=== PATIENT | female | born 1985 | race Caucasian/White ===

== ENCOUNTER 2018-12-06 10:12 | Inpatient (IN) | payer OTHER ==
[~2018-12-06] VITALS: Ht 157.5 cm; Wt 91.8 kg
[~2018-12-06 10:12] MED LIST: IBUP-1222 PO; OXYC-302 PO; PNV91TAB3 PO
[2018-12-06 10:21] VITALS: BP 116/72
[2018-12-06] MEDS ORDERED: OXYTOCIN 30U/ 0.9% NaCL 500ML 500 ML IV ONE (11:04)
[2018-12-06] MEDS ORDERED: D5%-LACTATED RINGERS 1,000 ML IV SCH (11:04)
[2018-12-06] MEDS: LACTATED RINGERS 1,000 ML IV SCH ×2 (11:09→13:11)
[2018-12-06] MEDS ORDERED: MISOPROSTOL 200 MCG TABLET ONE (11:26)
[2018-12-06] MEDS ORDERED: LIDOCAINE 1%, 20ML ONE (11:26)
[2018-12-06] MEDS ORDERED: NEWBORN KIT ONE (11:26)
[2018-12-06] MEDS ORDERED: OXYTOCIN 30U/ 0.9% NaCL 500ML 500 ML ONE (11:27)
[2018-12-06] MEDS ORDERED: TERBUTALINE 1 MG/ML, 1ML IVPush PRN (11:30)
[2018-12-06] MEDS ORDERED: FENTANYL PF 100 MCG/2ML IV PRN (11:30)
[2018-12-06] MEDS ORDERED: PENICILLIN GK 5,000,000 UNITS in DEXTROSE 5% 100 ML IVPB ONE (11:30)
[2018-12-06] MEDS ORDERED: FENTANYL PF 100 MCG/2ML IVPush PRN (11:30)
[2018-12-06] MEDS ORDERED: METOCLOPRAMIDE 5 MG/ML, 2ML IVPush PRN (11:30)
[2018-12-06] MEDS ORDERED: ONDANSETRON 2MG/ML, 2ML IVPush PRN (11:30)
[2018-12-06] MEDS ORDERED: SODIUM CITRATE/CITRIC ACID 30 ML UDC PO PRN (11:30)
[2018-12-06] MEDS ORDERED: FENTANYL/BUPIV./NS/PF 250 ML EPIDCONT SCH ×2 (11:59→14:14)
[2018-12-06 12:16] LABS: BASOPHILS # (AUTO) 0.02 x10^3/uL (0-0.1); BASOPHILS % (AUTO) 0 % (0-1); EOSINOPHILS # (AUTO) 0.05 x10^3/uL (0-0.4); EOSINOPHILS % (AUTO) 0 % (1-7); LYMPHOCYTES # (AUTO) 1.37 x10^3/uL (1-3.4); LYMPHOCYTES % (AUTO) 10 % (22-44); MD NO; MEAN CORPUSCULAR HEMOGLOBIN 33.7 pg (27.0-34.8); MEAN CORPUSCULAR VOLUME 96.4 fL (80-100); MEAN PLATELET VOLUME 10.3 fL (7.4-10.4); MONOCYTES # (AUTO) 0.81 x10^3/uL (0.2-0.8); MONOCYTES % (AUTO) 6 % (2-9); NEUTROPHILS % (AUTO) 84 % (42-75); PLATELET COUNT 148 x10^3/uL (130-400); RED BLOOD COUNT 4.41 x10^6/uL (3.82-5.3); RED CELL DISTRIBUTION WIDTH 13.8 % (9.6-15.2)
[2018-12-06] MEDS ORDERED: FENTANYL PF 500 MCG, BUPIVACAINE/PF 0.5%, 30ML 62.5 ML in SODIUM CHLORIDE 0.9% 177.5 ML EPIDCONT SCH (12:30)
[2018-12-06] MEDS ORDERED: ONDANSETRON 2MG/ML, 2ML ONE (13:00)
[2018-12-06] MEDS ORDERED: LACTATED RINGERS 1,000 ML IV SCH (14:14)
[2018-12-06] MEDS ORDERED: LACTATED RINGERS 1,000 ML IVBOLUS PRN (14:30)
[2018-12-06] MEDS ORDERED: NALOXONE 0.4 MG/ML, 1ML IVPush PRN (14:30)
[2018-12-06] MEDS ORDERED: EPHEDRINE 50 MG/ML, 1ML IVPush PRN (14:30)
[2018-12-06] MEDS ORDERED: EPHEDRINE 50 MG/ML, 1ML ONE (14:34)
[2018-12-06] MEDS ORDERED: PENICILLIN GK 2,500,000 UNITS in DEXTROSE 5% 100 ML IVPB SCH (15:30)
[2018-12-06] MEDS: OXYTOCIN 30U/ 0.9% NaCL 500ML 500 ML IV SCH (18:14)
[2018-12-06] MEDS ORDERED: ONDANSETRON 2MG/ML, 2ML IV PRN (18:30)
[2018-12-06] MEDS ORDERED: DOCUSATE 100 MG CAPSULE PO PRN (18:30)
[2018-12-06] MEDS ORDERED: MISOPROSTOL 200 MCG TABLET PR PRN (18:30)
[2018-12-06] MEDS ORDERED: CARBOPROST TROMETHAMINE 250 MCG/ML, 1ML IM PRN (18:30)
[2018-12-06] MEDS ORDERED: OXYcodone/APAP 5/325MG TABLET PO PRN ×2 (18:30)
[2018-12-06] MEDS ORDERED: METHYLERGONOVINE 0.2 MG/ML IM PRN (18:30)
[2018-12-06] MEDS ORDERED: IBUPROFEN 800 MG TABLET PO PRN (18:30)
[2018-12-06 20:30] VITALS: BP 116/67
[2018-12-07 00:30] VITALS: BP 123/83
[2018-12-07 02:48] LABS: MEAN CORPUSCULAR HEMOGLOBIN 32.8 pg (27.0-34.8); MEAN CORPUSCULAR HGB CONC 33.9 g/dL (32.4-35.8); MEAN PLATELET VOLUME 9.8 fL (7.4-10.4); PLATELET COUNT 134 x10^3/uL (130-400); RED BLOOD COUNT 3.84 x10^6/uL (3.82-5.3); RED CELL DISTRIBUTION WIDTH 13.9 % (9.6-15.2)
[2018-12-07 03:03] LABS: MD YES
[2018-12-07 03:05] LABS: <PLATELET ESTIMATE> ADEQUATE; <PLT MORPHOLOGY> NORMAL PLT MORPH; <RBC MORPHOLOGY> NORMAL; BAND#(MANUAL) 0.37 x10^3/uL; BANDS%(MANUAL) 2 % (0-7); LYMPH#(MANUAL) 2.23 x10^3/uL (1-3.4); LYMPHS% (MANUAL) 12 % (22-44); MONOS#(MANUAL) 0.93 x10^3/uL (0.3-2.7); MONOS% (MANUAL) 5 % (2-9); SEG#(MANUAL) 15.07 x10^3/uL (1.8-6.8); SEGS% (MANUAL) 81 % (42-75)
[2018-12-07] MEDS: OXYTOCIN 30U/ 0.9% NaCL 500ML 500 ML IV SCH ×2 (04:14→14:14)
[2018-12-07 04:45] VITALS: BP 103/68
[2018-12-07 08:16] VITALS: BP 126/80
[2018-12-07] MEDS ORDERED: PRENATAL VIT/IRON/FA 1 EACH TABLET PO SCH (09:00)
[2018-12-07 13:11] VITALS: BP 115/72
[2018-12-07 16:05] VITALS: BP 111/70
[2018-12-07] MEDS ORDERED: IBUP-1223 PO (17:51)
== END 2018-12-07 18:30 | disposition home or self-care (01) | DRG 807 ==
LOC: LDOP 10:12 → LDIP 10:59 → 2NW 20:17
PROVIDERS: ADMIT Obstetrics & Gynecology Gynecology; ATTEND Obstetrics & Gynecology Gynecology
PROC: 10E0XZZ Delivery of Products of Conception, External Approach (ICD-10-PCS; principal; 2018-12-06)
PROC: 10907ZC Drainage of Amniotic Fluid, Therapeutic from Products of Conception, Via Natural or Artificial Opening (ICD-10-PCS; 2018-12-06)
PROC: 3E0R3BZ Introduction of Anesthetic Agent into Spinal Canal, Percutaneous Approach (ICD-10-PCS; 2018-12-06)
PROC: 00HU33Z Insertion of Infusion Device into Spinal Canal, Percutaneous Approach (ICD-10-PCS; 2018-12-06)
DX: O40.3XX0 Polyhydramnios, third trimester, not applicable or unspecified (principal); Z37.0 Single live birth; Z3A.38 38 weeks gestation of pregnancy; O99.344 Other mental disorders complicating childbirth; Q51.10 Doubling of uterus with doubling of cervix and vagina without obstruction
CPT/HCPCS: 36415; 84112; 85025; 86850; 86900; G0378; J2405; J2540; J3010; J3490; J7050; J7120